=== PATIENT | female | born 1985 | race Caucasian/White ===

== ENCOUNTER → 2024-04-14 11:31 | Outpatient (REF) | payer BC, SELFPAY | LOC: RAD 11:31 | PROVIDERS: ATTENDING PHYSICIAN Nurse Practitioner Family; FAMILY PHYSICIAN Family Medicine | DX: M54.50 Low back pain, unspecified (principal) | CPT/HCPCS: 72110 ==

== ENCOUNTER → 2024-04-20 08:51 | Outpatient (REF) | payer BC, SELFPAY | LOC: HWRAD 08:51 | PROVIDERS: ATTENDING PHYSICIAN Nurse Practitioner Family | DX: M47.816 Spondylosis without myelopathy or radiculopathy, lumbar region (principal) | CPT/HCPCS: 72131 ==

== ENCOUNTER → 2024-08-17 09:45 | Outpatient (REF) | payer BC, SELFPAY | LOC: RAD 09:45 | PROVIDERS: ATTENDING PHYSICIAN Nurse Practitioner Family | DX: G44.51 Hemicrania continua (principal) | CPT/HCPCS: 70450 ==

== ENCOUNTER → 2024-08-19 18:08 | Outpatient (REF) | payer BC, SELFPAY | LOC: MRI 3T 18:08 | PROVIDERS: ATTENDING PHYSICIAN Neurological Surgery; FAMILY PHYSICIAN Nurse Practitioner Family | DX: Q07.00 Arnold-Chiari syndrome without spina bifida or hydrocephalus (principal) | CPT/HCPCS: 70553; 72156; A9575 ==

== ENCOUNTER → 2024-09-03 13:25 | Outpatient (REF) | payer BC, SELFPAY | LOC: RAD 13:25 | PROVIDERS: FAMILY PHYSICIAN Internal Medicine | DX: G93.89 Other specified disorders of brain (principal) | CPT/HCPCS: 71260; 74177; Q9967 ==